=== PATIENT | female | born 1995 | race Two or more races ===

== ENCOUNTER 2023-11-12 19:33 | Emergency (ER) | payer OTHER, BC ==
[2023-11-12] MEDS: Orphenadrine 60 MG/2 ML Inj IM ONE (20:39)
[2023-11-12] MEDS: Ketorolac 30 MG/ML SDV IM STA (20:42)
[2023-11-12] MEDS: Lidocaine 4% 1 each Patch TOP STA (20:43)
== END 2023-11-12 21:32 | disposition home or self-care (01) ==
LOC: EDSEX 19:33 → MW.ED 19:33
DX: M54.50 Low back pain, unspecified (principal); Z75.8 Other problems related to medical facilities and other health care
CPT/HCPCS: 96372; 99283; A9270; J1885; J2360

== ENCOUNTER 2024-10-20 17:48 | Emergency (ER) | payer BC | END 2024-10-20 18:45 | disposition home or self-care (01) | LOC: MW.ED 17:48 | DX: Z11.59 Encounter for screening for other viral diseases (principal) | CPT/HCPCS: 87651; 87798; 99283 ==